=== PATIENT | male | born 1990 ===

== ENCOUNTER 2018-03-31 14:39 | Inpatient (IN) | payer MEDICAID, OTHER ==
[2018-03-31 15:05] VITALS: O2SAT 100
--- NOTE | 2018-03-31 16:32 | C.PDOC ---
History Of Present Illness 27 year old male presents to ED for evaluation of depression and anxiety for significant amount of time but worse over this past week. Pt states he has thoughts of not wanting to live anymore. Notes he has history of bipolar disorder but is not taking his medications on a regular basis because he is unable to fill it. He reports smoking cigarettes, drinking alcohol and using marijuana occasionally. Otherwise, denies suicidal attempts in the past, suicidal plan, homicidal ideation, hallucination, or any active physical complaints at this time. Time Seen by Provider: 03/31/18 15:23 Chief Complaint (Nursing): Psychiatric Evaluation History Per: Patient History/Exam Limitations: no limitations Onset/Duration Of Symptoms: Days Current Symptoms Are (Timing): Still Present Suicide/Self Injury Attempted (Context): None Severity: None Pain Scale Rating Of: 0 Associated Symptoms: Anxiety, Depression, Suicidal Thoughts. denies: Suicidal Plan Involuntary Hold By: None Recent travel outside of the [place]: No Additional History Per: Patient Past Medical History Reviewed: Historical Data, Nursing Documentation, Vital Signs Vital Signs: Last Vital Signs Temp 98.7 F 03/31/18 15:00 Pulse 80 03/31/18 15:00 Resp 18 03/31/18 15:00 BP 118/79 03/31/18 15:00 Pulse Ox 100 03/31/18 16:33 - Medical History PMH: Anxiety, Asthma, Bipolar Disorder, Depression Denies: Diabetes, Hepatitis, HIV, HTN, Chronic Kidney Disease, Seizures, Sexually Transmitted Disease - [facility] Procedures GROUP PSYCHOTHERAPY (01/28/18) INDIV PSYCHOTHERAPY FOR SUBSTANCE ABUSE TREATMENT, SUPPORT (01/28/18) INDIV PSYCHOTHERAPY FOR SUBSTANCE ABUSE, COGNITIV BEHAVIORAL (01/28/18) INDIV PSYCHOTHERAPY FOR SUBSTANCE ABUSE, MOTIVATION ENHANCE (01/28/18) TETANUS TOXOID ADMINIST (09/29/13) Family History: States: Unknown Family Hx - Social History Hx Tobacco Use: Yes Hx Alcohol Use: No Hx Substance Use: Yes (1-2 MJ/day) - Immunization History Hx Tetanus Toxoid Vaccination: No Hx Influenza Vaccination: No Hx Pneumococcal Vaccination: No Review Of Systems Except As Marked, All Systems Reviewed And Found Negative. Constitutional: Negative for: Fever, Chills Cardiovascular: Negative for: Chest Pain Respiratory: Negative for: Shortness of Breath Gastrointestinal: Negative for: Nausea, Vomiting, Abdominal Pain Psych: Positive for: Anxiety, Depression, Suicidal ideation Physical Exam - Physical Exam Appears: Non-toxic, No Acute Distress Skin: Normal Color, Warm, Dry Head: Atraumatic, Normacephalic Eye(s): bilateral: Normal Inspection Oral Mucosa: Moist Neck: Supple Cardiovascular: Rhythm Regular Respiratory: Normal Breath Sounds, No Rales, No Rhonchi, No Wheezing Gastrointestinal/Abdominal: Soft, No Tenderness Extremity: Normal ROM Neurological/Psych: Oriented x3, Normal Speech ED Course And Treatment - Laboratory Results Result Diagrams: 03/31/18 16:34 03/31/18 16:34 O2 Sat by Pulse Oximetry: 100 (RA) Pulse Ox Interpretation: Normal Medical Decision Making Medical Decision Making: Plan: Blood work Urinalysis patient medically cleared, evaluated by crisis, and admitted to psych under Dr. De La Cruz. Disposition - Disposition Disposition Time: 17:47 Condition: STABLE Forms: [facility] (Libyan) - Clinical Impression Clinical Impression: Major depressive disorder - Scribe Statement The provider has reviewed the documentation as recorded by the Scribsonia Tarango All medical record entries made by the Scribe were at my direction and personally dictated by me. I have reviewed the chart and agree that the record accurately reflects my personal performance of the history, physical exam, medical decision making, and the department course for this patient. I have also personally directed, reviewed, and agree with the discharge instructions and disposition.
[2018-03-31 16:37] LABS: BASO % 0.6 % (0.0-2.0); EOS % 0.4 % (0.0-4.0); HEMOGLOBIN 15.8 g/dL (12.0-18.0); LYMPH # 1.7 K/uL (1.0-4.3); LYMPH % 25.1 % (20.0-40.0); MEAN CELL VOLUME 86.8 fL (80.0-94.0); MEAN CORPUSCULAR HEMOGLOBIN 30.1 pg (27.0-31.0); MEAN CORPUSCULAR HGB CONC 34.7 g/dL (33.0-37.0); MEAN PLATELET VOLUME 10.5 fL (7.2-11.7); MONO # 0.5 K/uL (0.0-0.8); MONO % 7.9 % (0.0-10.0); NEUT # 4.3 K/uL (1.8-7.0); NRBC % 0.1 % (0.0-2.0); RBC 5.24 Mil/uL (4.40-5.90); RED CELL DISTRIBUTION WIDTH 14.3 % (11.5-14.5); WHITE BLOOD COUNT 6.6 K/uL (4.8-10.8)
[2018-03-31 16:50] LABS: ALB/GLOB RATIO 1.4 (1.0-2.1); ALBUMIN 4.4 g/dL (3.5-5.0); ALT/SGPT 27 U/L (21-72); AST/SGOT 17 U/L (17-59); BLOOD UREA NITROGEN 10 mg/dL (9-20); CALCIUM 9.6 mg/dl (8.6-10.4); GFR AFRICAN-AMERICAN > 60; GFR NON-AFRICAN AMERICAN > 60
[2018-03-31 16:53] LABS: URINE BILIRUBIN NEGATIVE (NEGATIVE); URINE BLOOD NEGATIVE (NEGATIVE); URINE CLARITY Clear (Clear); URINE COLOR Straw (YELLOW); URINE GLUCOSE (UA) NORMAL (Normal); URINE LEUKOCYTE ESTERASE NEG Leu/uL (Negative); URINE PROTEIN NEGATIVE (NEGATIVE); URINE UROBILINOGEN NORMAL mg/dL (0.2-1.0)
[2018-03-31 17:10] LABS: BARBITURATES, UR NEGATIVE (NEGATIVE); BENZODIAZEPINES, UR NEGATIVE (NEGATIVE); OPIATES, UR NEGATIVE (NEGATIVE); PHENCYCLIDINE, UR NEGATIVE (NEGATIVE)
--- NOTE | 2018-03-31 19:35 | PCM.BM ---
Treatment Plan Problems - Problems identified on initial assessmt depression Date Initiated: 03/31/18 Time Initiated: 19:34 Assessment reference: NA Status: Active Treatment assets and liabiliti Patient Assests: adapts well, cooperative, insightful, motivated, resourceful, ADL independent, physically healthy (significant hx of head injury), negotiates basic needs, cognitively intact, good interpersonal skills (patient currentl reporting paranoia and difficulties in group settings) Patient Liabilities: poor support system, substance abuse - Milieu Protocol Maintain good personal hygiene: daily Encourage regular showers, daily Remind patient to perform daily oral care, daily Assist patient to perform ADL's Maintain personal safety: every shift Educate patient to report safety concerns to staff, every shift Monitor environment for contraband/sharps Medication safety: Monitor for expected outcome, potential side effects: every shift, Assess barriers to learning: every shift, Assess readiness for medication education: every shift
--- NOTE | 2018-04-01 10:08 | PCM.PSYCH ---
Initial Psychiatric Evaluation - Initial Psychiatric Evaluation Type of Admission: Voluntary Legal Status: Capacity Chief Complaint (in patient's own words): I was feeling increasingly anxious.' History of Present Illness and Precipitating Events: Patient is a 27 year old single male, who came to the [facility] ED because of depressed mood and anxiety. Patient reports a long history of bipolar disorder. He was just discharged from [facility] almost 2 months ago. As per the patient, he did not see any psychiatrist, after discharge and he took his medications off and on. As per the patient he started becoming increasingly irritable, agitated and depressed. Yesterday he became increasingly anxious, and he did not feel safe at home, so he came to the hospital to get help. Patient further explained that he'll take his night time medications sometimes but not his day time medications and that he lives in a 1 bedroom apartment with four people including himself. Patient then explained that sometimes he smokes "weed" to help or when he's not home he' ll go to the roof top to look at [facility]. He reports irritability, agitation, poor sleep, racing thoughts and flight of ideas. He also reports depressed mood, at times feelings of hopelessness and helplessness. Patient currently denies any auditory/visual hallucinations and any paranoia. He denies any homicidal ideation. He denies drinking or any other substance abuse. PMH: None reported Current Medications: Active Medications Generic Name Dose Route Start Last Admin Trade Name Freq PRN Reason Stop Dose Admin Divalproex Sodium 250 mg 04/01/18 10:[address] PO BID DONNA Hydroxyzine HCl 25 mg 03/31/18 22:22 Atarax PO Q6 PRN Anxiety Pneumococcal Polyvalent Vaccine 0.5 ml 04/03/18 10:00 Pneumovax 23 Vaccine IM 04/03/18 10:01 .ONCE ONE Quetiapine Fumarate 100 mg 03/31/18 22:30 03/31/18 22:36 Seroquel PO 100 mg HS DONNA Administration Trazodone HCl 50 mg 03/31/18 22:24 03/31/18 22:36 Desyrel PO 50 mg HS PRN Administration Sleep Past Psychiatric History - Past Psychiatric History Previous Treatment History: Inpatient Pertinent Medical Hx (Current Medical&Sleep Prob, Allergies): Allergies Allergy/AdvReac Type Severity Reaction Status Date / Time No Known Allergies Allergy Verified 03/31/18 15:05 Albuterol HFA [Ventolin HFA 90 mcg/actuation (8 g)] 2 puff INH RQ6 PRN inhaler 02/01/18 Divalproex [Depakote DR(*BID*)] 500 mg PO DAILY 30 Days #30 tcp 02/01/18 Divalproex [Depakote DR(*BID*)] 750 mg PO HS 30 Days #90 tcp 02/01/18 QUEtiapine [Seroquel] 100 mg PO HS 30 Days #30 tab 02/01/18 Review of Systems - Review of Systems All systems: reviewed and no additional remarkable complaints except - Psychiatric Psychiatric: Anxiety, Irritability, Suicidal Ideation Mental Status Examination - Personal Presentation Personal Presentation: Looks stated age - Affect Affect: Constricted, Depressed - Motor Activity Motor Activity: Calm - Reliability in Providing Information Reliability in Providing Information: Good - Speech Speech: Organized - Mood Mood: Depressed, Anxious - Formal Thought Process Formal Thought Process: No Impairment - Obsessions/Compulsions Obsessions: No Compulsions: No - Cognitive Functions Orientation: Person, Place, Situation, Time Sensorium: Alert Attention/Concentration: Attentive Abstract Thinking: [place] Estimate of Intelligence: Below average Judgement: Imparied, as evidence by: Poor judgement, Imparied, as evidence by: Lack of insight into illness - Risk Risk: Suicidal, Withdrawal, Diminished functioning - Limitations Limitations: Living alone DSM 5 DX - DSM 5 DSM 5 Diagnosis: Bipolar disorder mixed severe without psychotic features Cannabis use disorder moderate - Recommended/Plan of Treatment Treatment Recommendations and Plan of Treatment: Bipolar disorder mixed severe without psychotic features -CBT -Psychoeducation -Supportive therapy, group therapy, individual therapy -Depakote 250 mg by mouth twice a day -Seroquel 100 mg by mouth daily at bedtime -Trazodone 50 mg by mouth daily at bedtime Cannabis use disorder moderate -Monitor signs and symptoms -Use OK for abstinence - Smoking Cessation Smoking Cessation Initiated: No
[2018-04-01] MEDS: Divalproex 250 mg DR Tab PO SCH ×2 (10:45→17:34)
[2018-04-02] MEDS: Divalproex 500 mg DR Tab PO SCH ×2 (09:57→17:13)
--- NOTE | 2018-04-02 14:06 | PCM.PYCHPN ---
Psychiatric Progress Note - Psychiatric Progress Note Patient seen today, length of contact: 15 min Patient Chief Complaint: I m feeling little better.' Problems Identified/Issues Discussed: Patient seen and evaluated, chart reviewed and discussed with the nurse. Patient reports some improvement in the irritability and agitation. He reports some improvement in the racing of thoughts and anxiety symptoms. He is requesting to increase her meds. However denies any auditory or visual hallucinations. He is taking medication and denies any side effects. Supportive therapy and psychoeducation were given Medication Change: Yes (increase Depakote) Medical Record Reviewed: Yes Mental Status Examination - Cognitive Function Orientation: Person, Place, Situation, Time Memory: Intact Attention: WNL Concentration: Poor Association: WNL Fund of Knowledge: Poor - Mood Mood: Depressed, Anxious - Affect Affect: Constricted, Depressed - Speech Speech: Soft - Formal Thought Process Formal Thought Process: Flight of ideas - Suicidal Ideation Suicidal Ideation: No - Homicidal Ideation Homicidal Ideation: No Goal/Treatment Plan - Goal/Treatment Plan Need for Continued Stay: Severe depression anxiety, Severe functional impairment Progress Toward Problem(s) and Goals/Treatment Plan: Bipolar disorder mixed severe without psychotic features -CBT -Psychoeducation -Supportive therapy, group therapy, individual therapy -Depakote 500 mg by mouth twice a day -Depakote 250 mg by mouth HS -Seroquel 200 mg by mouth daily at bedtime -Trazodone 50 mg by mouth daily at bedtime Cannabis use disorder moderate -Monitor signs and symptoms -Use RI for abstinence
[2018-04-02] MEDS ORDERED: Divalproex 250 mg DR Tab PO SCH (18:00)
[2018-04-03 06:29] VITALS: BP 90/56; PULSE 51; RESP 18; TEMP 98
[2018-04-03] MEDS ORDERED: Pneumococcal 23-Valent Vaccine IM ONE (10:00)
--- NOTE | 2018-04-03 13:12 | PCM.PYCHDC ---
Mental Status Examination - Mental Status Examination Orientation: Person Discharge Summary - Discharge Note Consultations:: List each consultation separately and include: 1. Reason for request. 2. Findings. 3. Follow-up Summary of Hospital Course include:: 1. Description of specific treatment plan utilized for patients during their course of treatmen. 2. Summarize the time- course for resolution of acute symptoms and/or regressed behaviors. 3. Describe issues identified and worked on during hospitalization. 4. Describe medication utilized. 5. Describe medical problems identified and treated. 6. Reassessment of suicide risk Summary of Hospital Course: He moved to [place]. - Final Diagnosis (DSM 5) Condition upon Discharge: STABLE Disposition: HOME/ ROUTINE Prescriptions/Medication Reconciliation: Divalproex [Depakote DR] 250 mg PO QPM #30 tcp Divalproex [Depakote DR] 500 mg PO BID #60 tcp QUEtiapine [Seroquel] 200 mg PO HS #30 tab
== END 2018-04-03 09:00 | disposition home or self-care (01) | DRG 430 ==
LOC: C.ER 14:39 → C.5E 17:47
PROVIDERS: ADMIT Psychiatry & Neurology Psychiatry; ATTEND Psychiatry & Neurology Psychiatry
PROC: GZ3ZZZZ Medication Management (ICD-10-PCS; principal; 2018-03-31)
PROC: GZHZZZZ Group Psychotherapy (ICD-10-PCS; 2018-03-31)
PROC: GZ56ZZZ Individual Psychotherapy, Supportive (ICD-10-PCS; 2018-03-31)
PROC: HZ89ZZZ Medication Management for Substance Abuse Treatment, Other Replacement Medication (ICD-10-PCS; 2018-03-31)
DX: F31.63 Bipolar disorder, current episode mixed, severe, without psychotic features (principal); F12.20 Cannabis dependence, uncomplicated; F17.210 Nicotine dependence, cigarettes, uncomplicated; F41.9 Anxiety disorder, unspecified; J45.909 Unspecified asthma, uncomplicated

== ENCOUNTER 2018-08-18 19:40 | Inpatient (IN) | payer MEDICAID ==
[2018-08-18 20:17] LABS: BASO % 0.6 % (0.0-2.0); EOS % 0.3 % (0.0-4.0); HEMOGLOBIN 16.3 g/dL (12.0-18.0); LYMPH # 1.5 K/uL (1.0-4.3); LYMPH % 20.5 % (20.0-40.0); MEAN CELL VOLUME 89.4 fL (80.0-94.0); MEAN CORPUSCULAR HEMOGLOBIN 30.5 pg (27.0-31.0); MEAN CORPUSCULAR HGB CONC 34.1 g/dL (33.0-37.0); MEAN PLATELET VOLUME 10.5 fL (7.2-11.7); MONO # 0.5 K/uL (0.0-0.8); MONO % 6.9 % (0.0-10.0); NEUT # 5.3 K/uL (1.8-7.0); NEUT % 71.7 % (50.0-75.0); NRBC % 0.1 % (0.0-2.0); RBC 5.35 Mil/uL (4.40-5.90); RED CELL DISTRIBUTION WIDTH 13.5 % (11.5-14.5); WHITE BLOOD COUNT 7.4 K/uL (4.8-10.8)
[2018-08-18 20:30] LABS: ALB/GLOB RATIO 1.6 (1.0-2.1); ALBUMIN 4.9 g/dL (3.5-5.0); ALT/SGPT 28 U/L (21-72); AST/SGOT 22 U/L (17-59); BLOOD UREA NITROGEN 13 mg/dL (9-20); CALCIUM 9.9 mg/dl (8.6-10.4); GFR NON-AFRICAN AMERICAN > 60
[2018-08-18 20:38] LABS: URINE BILIRUBIN NEGATIVE (NEGATIVE); URINE BLOOD NEGATIVE (NEGATIVE); URINE CLARITY Clear (Clear); URINE COLOR Straw (YELLOW); URINE GLUCOSE (UA) NORMAL (Normal); URINE LEUKOCYTE ESTERASE NEG Leu/uL (Negative); URINE PROTEIN NEGATIVE (NEGATIVE); URINE UROBILINOGEN NORMAL mg/dL (0.2-1.0)
[2018-08-18 20:55] LABS: BARBITURATES, UR NEGATIVE (NEGATIVE); BENZODIAZEPINES, UR NEGATIVE (NEGATIVE); OPIATES, UR NEGATIVE (NEGATIVE); PHENCYCLIDINE, UR NEGATIVE (NEGATIVE)
--- NOTE | 2018-08-18 21:05 | C.PDOC ---
History Of Present Illness 27 year old male with a history of bipolar disorder, schizophrenia, presents to the emergency department with reports of feeling anxious and depressed for the past few days. Patient states that he doesn't want to live anymore, but states he has no plans to hurt himself, rather he "just wants to ". Patient denies homicidal ideation, drug/alcohol abuse. Patient also reports that he smokes cigarettes. Patient states that he is supposed to be on Depakote, Seroquel, and Xanax, but he has not taken them due to being unable to fill the prescription since 08/13/18. <Kelsey Arreola - Last Filed: 08/18/18 20:55> History Per: Patient Onset/Duration Of Symptoms: Days Current Symptoms Are (Timing): Still Present Suicide/Self Injury Attempted (Context): None Modifying Factor(s): None Associated Symptoms: Anxiety, Depression, Suicidal Thoughts. denies: Suicidal Plan <Kelsey Arreola - Last Filed: 08/18/18 20:55> <Vijay Green - Last Filed: 08/19/18 00:21> Time Seen by Provider: 08/18/18 19:53 Chief Complaint (Nursing): Psychiatric Evaluation Past Medical History Reviewed: Historical Data, Nursing Documentation, Vital Signs Vital Signs: Last Vital Signs Temp Pulse 90 08/18/18 19:46 Resp 14 08/18/18 19:46 BP 120/80 08/18/18 19:46 Pulse Ox 99 08/18/18 19:46 - Medical History PMH: Anxiety, Asthma, Bipolar Disorder, Depression Denies: Diabetes, Hepatitis, HIV, HTN, Chronic Kidney Disease, Seizures, Sexually Transmitted Disease Surgical History: No Surg Hx - [facility] Procedures GROUP PSYCHOTHERAPY (05/19/18) INDIV PSYCHOTHERAPY FOR SUBSTANCE ABUSE TREATMENT, SUPPORT (01/28/18) INDIV PSYCHOTHERAPY FOR SUBSTANCE ABUSE, COGNITIV BEHAVIORAL (01/28/18) INDIV PSYCHOTHERAPY FOR SUBSTANCE ABUSE, MOTIVATION ENHANCE (01/28/18) INDIVIDUAL PSYCHOTHERAPY, COGNITIVE-BEHAVIORAL (05/19/18) INDIVIDUAL PSYCHOTHERAPY, SUPPORTIVE (05/19/18) MEDICATION MANAGEMENT (03/31/18) MEDS MGMT FOR SUBSTANCE ABUSE TREATMENT, OTH REPL MED (03/31/18) TETANUS TOXOID ADMINIST (09/29/13) Family History: States: No Known Family Hx - Social History Hx Tobacco Use: Yes Hx Alcohol Use: No Hx Substance Use: Yes (Marijuana) - Immunization History Hx Tetanus Toxoid Vaccination: No Hx Influenza Vaccination: No Hx Pneumococcal Vaccination: No <Kelsey Arreola - Last Filed: 08/18/18 20:55> Vital Signs: Last Vital Signs Temp 97.7 F 08/18/18 22:38 Pulse 60 08/18/18 22:38 Resp 14 08/18/18 22:38 BP 91/57 L 08/18/18 22:38 Pulse Ox 97 08/18/18 22:38 - [facility] Procedures GROUP PSYCHOTHERAPY (05/19/18) INDIV PSYCHOTHERAPY FOR SUBSTANCE ABUSE TREATMENT, SUPPORT (01/28/18) INDIV PSYCHOTHERAPY FOR SUBSTANCE ABUSE, COGNITIV BEHAVIORAL (01/28/18) INDIV PSYCHOTHERAPY FOR SUBSTANCE ABUSE, MOTIVATION ENHANCE (01/28/18) INDIVIDUAL PSYCHOTHERAPY, COGNITIVE-BEHAVIORAL (05/19/18) INDIVIDUAL PSYCHOTHERAPY, SUPPORTIVE (05/19/18) MEDICATION MANAGEMENT (03/31/18) MEDS MGMT FOR SUBSTANCE ABUSE TREATMENT, OTH REPL MED (03/31/18) TETANUS TOXOID ADMINIST (09/29/13) <Vijay Green - Last Filed: 08/19/18 00:21> Review Of Systems Constitutional: Negative for: Fever, Chills Cardiovascular: Negative for: Chest Pain Gastrointestinal: Negative for: Nausea, Vomiting, Abdominal Pain, Diarrhea Psych: Positive for: Anxiety, Depression, Suicidal ideation <Kelsey Arreola M - Last Filed: 08/18/18 20:55> Physical Exam - Physical Exam Appears: Non-toxic, No Acute Distress, Other (flat affect) Skin: Warm, Dry Head: Atraumatic, Normacephalic Eye(s): bilateral: Normal Inspection, PERRL, EOMI Oral Mucosa: Moist Neck: Normal, Supple Chest: Symmetrical, No Tenderness Cardiovascular: Rhythm Regular, No Murmur Respiratory: Normal Breath Sounds, No Rales, No Rhonchi, No Wheezing Gastrointestinal/Abdominal: Soft, No Tenderness, No Guarding, No Rebound Extremity: Normal ROM Neurological/Psych: Oriented x3, Normal Speech, Normal Cognition <Kelsey Arreola M - Last Filed: 08/18/18 20:55> ED Course And Treatment - Laboratory Results Result Diagrams: 08/18/18 20:14 08/18/18 20:14 O2 Sat by Pulse Oximetry: 99 (RA) Pulse Ox Interpretation: Normal <Kelsey Arreola - Last Filed: 08/18/18 20:55> - Laboratory Results Result Diagrams: 08/18/18 20:14 08/18/18 20:14 <Vijay Green - Last Filed: 08/19/18 00:21> Medical Decision Making Medical Decision Making: Plan: Chemistry CBC Urinalysis <Kelsey Arreola - Last Filed: 08/18/18 20:55> Disposition <Kelsey Arreola - Last Filed: 08/18/18 20:55> Discussed With Dr.: Jared De Leon Doctor Will See Patient In The: Hospital Counseled Patient/Family Regarding: Diagnosis - Disposition Disposition Time: 00:21 - POA Present On Arrival: None <Vijay Green - Last Filed: 08/19/18 00:21> - Disposition Disposition: HOSPITALIZED Condition: STABLE Forms: [facility] (Italian) - Clinical Impression Clinical Impression: Bipolar disorder - Scribe Statement The provider has reviewed the documentation as recorded by the Scribe (Franc Mccracken) Provider Attestation: All medical record entries made by the Scribe were at my direction and person ally dictated by me. I have reviewed the chart and agree that the record accurately reflects my personal performance of the history, physical exam, medical decision making, and the department course for this patient. I have also personally directed, reviewed, and agree with the discharge instructions and disposition. <Kelsey Arreola - Last Filed: 08/18/18 20:55>
--- NOTE | 2018-08-19 02:17 | PCM.BM ---
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), insightful, motivated, resourceful, ADL independent, physically healthy (significant hx of head injury), negotiates basic needs, cognitively intact, good interpersonal skills (patient currentl reporting paranoia and difficulties in group settings) Patient Liabilities: financial problems (lack of resourcess), poor support system (family issues), substance abuse (Marijuana), medical problems (none) - Milieu Protocol Maintain good personal hygiene: daily Encourage regular showers, daily Remind patient to perform daily oral care, daily Assist patient to perform ADL's Maintain personal safety: every shift Educate patient to report safety concerns to staff, every shift Monitor environment for contraband/sharps Medication safety: Monitor for expected outcome, potential side effects: every shift, Assess barriers to learning: every shift, Assess readiness for medication education: every shift <Lisa Chanel - Last Filed: 08/19/18 13:43> Family Contact Family involvement: Family/SO is involved Family contact: Patient agrees to contact Family contact name: Cody Ramos-father Family contacted how many times per week?: 1 - Goals for Treatment Patient goals for treatment: "I need a partial care program." Discharge/Continuing Care - Education Needs Education Needs: Patient Medication, Patient Coping Skills - Discharge Discharge Criteria: Tolerates medication w/o severe side effects, Reduction of target symptoms Discharge to:: Home, With Family - Treatment Team Participation Discussed with Family/SO: No Was Patient/Family/SO present at Treatment Team Meeting: Yes <Chery Avina - Last Filed: 08/19/18 14:02> - Diagnosis (1) Social anxiety disorder Status: Acute Interventions: 08/19/18 14:01 * Assess/adjust medications daily and /or as needed * See patient on an individual basis 7x/week to assess symptoms of anxiety * Educate patient regarding benefits, side effects and risks of prescribed medications * (2) Bipolar disorder Status: Chronic Interventions: 08/19/18 14:01 * Assess/adjust medications daily and /or as needed * See patient on an individual basis 7x/week to assess symptoms of depression * Monitor for side effects & effectiveness of medications *
--- NOTE | 2018-08-19 09:57 | PCM.PSYCH ---
Initial Psychiatric Evaluation - Initial Psychiatric Evaluation Type of Admission: Voluntary Legal Status: Capacity History of Present Illness and Precipitating Events: Pt is a 27yr old, , male with a reported hx of bipolar and anxiety d/o. Pt denied any substance abuse hx, but he was positive for cannabis. Pt was alert and oriented during this evaluation. Pt said that he has been self medicating with cannabis, because he ran out of medication and his insurance on 08/13/18. Pt said he was in the hospial and unable to follow up on the paperwork. Pt said he is feeling paranoid, out of control, nervous and having negative thoughts. Pt said that he wants to , so his famly don't have to put up with him anymore. However he denies having a plan for harming himself. Pt said he needs to get some medication. Pt., said that he lives with his mother, father and younger brother in a one bed room apt. Pt said he sleeps on the couch and his younger brother sleeps in the room with his parents. Pt said that he is having a very hard time living there because of the close living quarters and his father drinks a lot. Pt said that he has been suffering from mental illness since age 10. Pt denied any traumatic events or being the victim of any type of abuse. Pt denied having SSI or SSD. 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 Pt said that he is unable to acknowledge any of his skills or strengths because he don't feel like himself. Pt said his weakness is, he cannot stick to one thing and see it all the way through to completion. Pt said his goal is to get better so he can help others. Pt presented with signs and symptoms of hopelessness, helplessness and worthlessness as he requested a mental bed so he can get some help for his bipolar and anxiety. Pt. will be admitted to ([address] [place] [address] for his wellness, safety and health care. [ End ] Current Medications: Active Medications Generic Name Dose Route Start Last Admin Trade Name Freq PRN Reason Stop Dose Admin Acetaminophen 650 mg 08/19/18 01:05 08/19/18 01:15 Tylenol 325mg Tab PO 650 mg Q6 PRN Administration Headache Hydroxyzine HCl 25 mg 08/19/18 00:55 08/19/18 01:14 Atarax PO 25 mg Q6H PRN Administration Agitation Past Psychiatric History - Past Psychiatric History Pertinent Medical Hx (Current Medical&Sleep Prob, Allergies): Allergies Allergy/AdvReac Type Severity Reaction Status Date / Time No Known Allergies Allergy Verified 08/18/18 19:49 Albuterol HFA [Ventolin HFA 90 mcg/actuation (8 g)] 2 puff INH RQ6 PRN inhaler 02/01/18 Alprazolam [Xanax] 2 mg PO BID 08/18/18 QUEtiapine [SEROquel] 300 mg PO HS 08/18/18
--- NOTE | 2018-08-19 11:10 | PCM.PSYCH ---
Initial Psychiatric Evaluation - Initial Psychiatric Evaluation Type of Admission: Voluntary Legal Status: Capacity Chief Complaint (in patient's own words): I feel depressed and I have suicidal thoughts. History of Present Illness and Precipitating Events: 27 year male, single, unemployed, male, currently living at home with parents w/ history multiple psychiatric admissions for bipolar disorder/depression/suicidal idealizations, currently admitted for depression and suicidal thoughts. Patient states he has been feeling primarily depressed for the last several years along with suicidal thoughts. He has previous history of cutting his wrists, but actively does not have any plan. Patient additionally admits to periods of elevated mood with inability to focus that causes him to stay awake many hours throughout the night. These occurrences require him to be pacing throughout the night. Additionally patient admits to feeling anxious many times throughout the day, sometimes more in public, large crowds. Patient states he has been unable to finish higher education due to these thoughts. Patient was recently hospitalized at [facility] about 1 month prior for similar issues, bipolar disorder, depression/suicidal idealization and was scheduled to receive follow up care w/ medications upon discharge; however, patient states he did not have a chance to have follow up care due to insurance issues. Patient additionally states his depakote that he has been taking for the past several years, has no longer been helping. There was discussion at the last hospitalization of changing his depakote to lithium; however, patient was too nervous to change the medication due to potential side- effects. Patient admits to daily cannabis use; however, denies ETOH and other drug use. Patient states he has family history (father) of ETOH abuse & (uncle) of anxiety. Patient has a history of asthma that does not currently require any medical therapy. Patient denies any allergies & surgical history. Patient states he takes depakote, seroquel, and alazopram at home. Current Medications: Active Medications Generic Name Dose Route Start Last Admin Trade Name Freq PRN Reason Stop Dose Admin Acetaminophen 650 mg 08/19/18 01:05 08/19/18 01:15 Tylenol 325mg Tab PO 650 mg Q6 PRN Administration Headache Gabapentin 100 mg 08/19/18 10:15 Neurontin PO TID DONNA Hydroxyzine HCl 25 mg 08/19/18 00:55 08/19/18 01:14 Atarax PO 25 mg Q6H PRN Administration Agitation Trazodone HCl 50 mg 08/19/18 22:00 Desyrel PO HS DONNA Venlafaxine HCl 75 mg 08/19/18 10:00 Effexor PO DAILY DONNA Past Psychiatric History - Past Psychiatric History Previous Treatment History: Inpatient Prior Professional Help: Previous admission for suicidal & depressive thoughts. At [facility]: [facility] Date: 07/13/18 Nature of Treatment: depression and suicidial thoughts History of ETOH/Drug Use: Cannabis use Pertinent Medical Hx (Current Medical&Sleep Prob, Allergies): Allergies Allergy/AdvReac Type Severity Reaction Status Date / Time No Known Allergies Allergy Verified 08/18/18 19:49 Albuterol HFA [Ventolin HFA 90 mcg/actuation (8 g)] 2 puff INH RQ6 PRN inhaler 02/01/18 Alprazolam [Xanax] 2 mg PO BID 08/18/18 QUEtiapine [SEROquel] 300 mg PO HS 08/18/18 Review of Systems - Psychiatric Psychiatric: Anxiety, Depression, Suicidal Ideation. absent: Auditory Hallucinations, Behavioral Changes, Change in Appetite, Confusion, Homicidal Ideation, Memory Loss, Mood Swings, Visual Hallucinations Mental Status Examination - Personal Presentation Personal Presentation: Looks stated age - Affect Affect: Depressed - Motor Activity Motor Activity: Calm - Reliability in Providing Information Reliability in Providing Information: Good - Speech Speech: Organized, Relevant, Coherent - Mood Mood: Depressed - Formal Thought Process Formal Thought Process: No Impairment - Obsessions/Compulsions Obsessions: No Compulsions: No - Cognitive Functions Orientation: Person, Place, Time Sensorium: Alert - Risk Risk: Suicidal, Homicidal DSM 5 DX - DSM 5 DSM 5 Diagnosis: Bipolar disorder with depressed mood Cannabis use disorder, severe - Recommended/Plan of Treatment Treatment Recommendations and Plan of Treatment: Patient education. Supportive therapy and group therapy Psychoeducation Seroquel 300 mg PO HS Gabapentin 300 mg PO BID Trazodone 50 mg PO HS Atarax 25 mg PO Q6H PRN Albuterol INH RQ4 PRN Tylenol 650 PO Q6 PRN Other PRN medications. - Smoking Cessation Smoking Cessation Initiated: No Reason for not providing: patient is a nonsmoker
[2018-08-19] MEDS ORDERED: Albuterol HFA 90 mcg/actuation (8 g) INH PRN (12:41)
--- NOTE | 2018-08-19 14:02 | CP.PCM.PCO ---
Physician Communication Note - Physician Communication Note Physician Communication Note: [employer] left a vm to his father with his consent.
[2018-08-20 06:50] VITALS: O2SAT 98
--- NOTE | 2018-08-20 13:16 | PCM.PYCHPN ---
Psychiatric Progress Note - Psychiatric Progress Note Patient seen today, length of contact: 22 min Patient Chief Complaint: "I don't think Seroquel is working, It doesn't work in me" Problems Identified/Issues Discussed: The pt is seen, chart reviewed, case discussed with staff. The pt is compliant with medications and reports no side-effects, except for not believing it will work He asked for [place] - risks discussed and med is ordered Symptoms are improving slowly but needs more time to stabilize. He has likely borderline features. His fa did not call back Pt attends groups and activities. Support given, psycho-education provided. After care discussed. Medication Change: Yes (add lithium) Medical Record Reviewed: Yes Mental Status Examination - Cognitive Function Orientation: Person, Place, Time Memory: Intact Attention: WNL Concentration: Poor Association: WNL Fund of Knowledge: WNL - Mood Mood: Depressed - Affect Affect: Broad, Depressed - Speech Speech: Appropriate - Formal Thought Process Formal Thought Process: No Impairment - Suicidal Ideation Suicidal Ideation: No Plan: vague SI but no plans or intentions - Homicidal Ideation Homicidal Ideation: No Goal/Treatment Plan - Goal/Treatment Plan Need for Continued Stay: Severe depression anxiety, Discharge may exacerbated symptoms, Severe functional impairment Progress Toward Problem(s) and Goals/Treatment Plan: Patient education. Supportive therapy and group therapy Psychoeducation Seroquel 300 mg PO HS Gabapentin 300 mg PO BID Trazodone 50 mg PO HS Atarax 25 mg PO Q6H PRN Albuterol INH RQ4 PRN Tylenol 650 PO Q6 PRN Other PRN medications.
[2018-08-20] MEDS: Lithium Carbonate ER Tab 450 MG PO SCH (21:46)
[2018-08-21] MEDS: Lithium Carbonate ER Tab 450 MG PO SCH ×2 (09:27→21:27)
--- NOTE | 2018-08-21 14:09 | PCM.PYCHPN ---
Psychiatric Progress Note - Psychiatric Progress Note Patient seen today, length of contact: 16 min Patient Chief Complaint: "I was worried about [place]" Problems Identified/Issues Discussed: The pt is seen, chart reviewed, case is discussed with staff. Support and psychoeducation given, CBT used briefly The pt is improving slowly but needs more time due to severity of symptoms and relapse risk. He refused Li fearing it would be "too much" but now he agrees to take it Still at risk for suicide No SEs from medications, risks discussed. After care discussed Medication Change: Yes (start lithium) Medical Record Reviewed: Yes Mental Status Examination - Cognitive Function Orientation: Person, Place, Time Memory: Intact Attention: WNL Concentration: Poor Association: WNL Fund of Knowledge: WNL - Mood Mood: Depressed - Affect Affect: Broad, Depressed - Speech Speech: Appropriate - Formal Thought Process Formal Thought Process: No Impairment - Suicidal Ideation Suicidal Ideation: No - Homicidal Ideation Homicidal Ideation: No Goal/Treatment Plan - Goal/Treatment Plan Need for Continued Stay: Severe depression anxiety, Discharge may exacerbated symptoms, Severe functional impairment Progress Toward Problem(s) and Goals/Treatment Plan: Patient education. Supportive therapy and group therapy Psychoeducation Seroquel 300 mg PO HS Gabapentin 300 mg PO BID Trazodone 50 mg PO HS Atarax 25 mg PO Q6H PRN Albuterol INH RQ4 PRN Tylenol 650 PO Q6 PRN Other PRN medications.
[2018-08-22] MEDS: Lithium Carbonate ER Tab 450 MG PO SCH ×2 (10:08→21:23)
--- NOTE | 2018-08-22 11:23 | PCM.PYCHPN ---
Psychiatric Progress Note - Psychiatric Progress Note Patient seen today, length of contact: 15 min Patient Chief Complaint: "I was worried about [place]" Problems Identified/Issues Discussed: The pt is seen, chart reviewed, case is discussed with staff. Support and psychoeducation given, CBT used briefly The pt is improving slowly but needs more time due to severity of symptoms and relapse risk. He refused Li fearing it would be "too much" but now he agrees to take it Still at risk for suicide No SEs from medications, risks discussed. After care discussed Medication Change: Yes (start lithium) Medical Record Reviewed: Yes Mental Status Examination - Cognitive Function Orientation: Person, Place, Time Memory: Intact Attention: WNL Concentration: Poor Association: WNL Fund of Knowledge: WNL - Mood Mood: Depressed - Affect Affect: Broad, Depressed - Speech Speech: Appropriate - Formal Thought Process Formal Thought Process: No Impairment - Suicidal Ideation Suicidal Ideation: No - Homicidal Ideation Homicidal Ideation: No Goal/Treatment Plan - Goal/Treatment Plan Need for Continued Stay: Severe depression anxiety, Discharge may exacerbated symptoms, Severe functional impairment Progress Toward Problem(s) and Goals/Treatment Plan: Patient education. Supportive therapy and group therapy Psychoeducation Seroquel 300 mg PO HS Gabapentin 300 mg PO BID Trazodone 50 mg PO HS Atarax 25 mg PO Q6H PRN Albuterol INH RQ4 PRN Tylenol 650 PO Q6 PRN Other PRN medications.
[2018-08-23] MEDS: Lithium Carbonate ER Tab 450 MG PO SCH ×2 (10:02→21:33)
[2018-08-24] MEDS: Lithium Carbonate ER Tab 450 MG PO SCH ×2 (09:31→21:30)
[2018-08-25 06:34] VITALS: TEMP 98.3
[2018-08-25 08:48] LABS: ALB/GLOB RATIO 1.8 (1.0-2.1); ALBUMIN 4.7 g/dL (3.5-5.0); ALT/SGPT 31 U/L (21-72); AST/SGOT 16 U/L (17-59); BLOOD UREA NITROGEN 15 mg/dL (9-20); CALCIUM 9.8 mg/dl (8.6-10.4); GFR NON-AFRICAN AMERICAN > 60
[2018-08-25 09:37] LABS: HIV 1&2 ANTIBODY NEGATIVE (NEGATIVE)
[2018-08-25 09:38] LABS: HEPATITIS C ANTIBODY NEGATIVE (NEGATIVE)
[2018-08-25] MEDS: Lithium Carbonate ER Tab 450 MG PO SCH ×2 (09:56→21:15)
[2018-08-26] MEDS: Lithium Carbonate ER Tab 450 MG PO SCH ×2 (09:13→21:07)
--- NOTE | 2018-08-26 10:14 | PCM.BM ---
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), insightful, motivated, resourceful, ADL independent, physically healthy (significant hx of head injury), negotiates basic needs, cognitively intact, good interpersonal skills (patient currentl reporting paranoia and difficulties in group settings) Patient Liabilities: financial problems (lack of resourcess), poor support system (family issues), substance abuse (Marijuana), medical problems (none) - Milieu Protocol Maintain good personal hygiene: daily Encourage regular showers, daily Remind patient to perform daily oral care, daily Assist patient to perform ADL's Maintain personal safety: every shift Educate patient to report safety concerns to staff, every shift Monitor environment for contraband/sharps Medication safety: Monitor for expected outcome, potential side effects: every shift, Assess barriers to learning: every shift, Assess readiness for medication education: every shift Milieu Narrative: Patient education. Supportive therapy and group therapy Psychoeducation Seroquel 300 mg PO HS Gabapentin 300 mg PO BID Trazodone 50 mg PO HS Atarax 25 mg PO Q6H PRN Albuterol INH RQ4 PRN Tylenol 650 PO Q6 PRN Other PRN medications. Family Contact Family involvement: Family/SO is involved Family contact: Patient agrees to contact Family contact name: Cody Ramos-father Family contacted how many times per week?: 1 - Goals for Treatment Patient goals for treatment: "I need a partial care program." Discharge/Continuing Care - Education Needs Education Needs: Patient Medication, Patient Coping Skills - Discharge Discharge Criteria: Tolerates medication w/o severe side effects, Reduction of target symptoms Discharge to:: Home, With Family - Treatment Team Participation Patient/Family/SO Statement: Patient education. Supportive therapy and group therapy Psychoeducation Seroquel 300 mg PO HS Gabapentin 300 mg PO BID Trazodone 50 mg PO HS Atarax 25 mg PO Q6H PRN Albuterol INH RQ4 PRN Tylenol 650 PO Q6 PRN Other PRN medications. Discussed with Family/SO: No Was Patient/Family/SO present at Treatment Team Meeting: Yes Treatment Plan Review - Problem Altered thought process Time Initiated: 02:15 Eneffective coping skill Time Initiated: 02:15 - Discharge / Continuing Care Discharge to:: Home, With Family Behavioral Health Services: Partial hospital Health Needs: Medications/Rx <Chery Avina - Last Filed: 08/26/18 14:02> - Diagnosis (1) Social anxiety disorder Status: Acute Interventions: 08/26/18 14:02 * Assess/adjust medications daily and /or as needed * See patient on an individual basis 7x/week to assess symptoms of anxiety * Educate patient regarding benefits, side effects and risks of prescribed medications * (2) Bipolar disorder Status: Chronic Interventions: 08/26/18 14:02 * Assess/adjust medications daily and /or as needed * See patient on an individual basis 7x/week to assess level of manic behaviors and stability * Discuss risks, benefits, side effects and alternatives of medications * <Angelic Vizcaino - Last Filed: 08/26/18 14:43> Treatment Plan Review - Problem Altered thought process Date Initiated: 08/26/18 Time Initiated: 14:43 Progress toward outcomes: improved Eneffective coping skill Date Initiated: 08/26/18 Time Initiated: 14:43 Progress toward outcomes: improved
--- NOTE | 2018-08-26 14:00 | PCM.PYCHPN ---
Psychiatric Progress Note - Psychiatric Progress Note Patient seen today, length of contact: 15 min Patient Chief Complaint: "I was worried about [place]" Problems Identified/Issues Discussed: The pt is seen, chart reviewed, case is discussed with staff. Support and psychoeducation given, CBT used briefly The pt is improving slowly but needs more time due to severity of symptoms and relapse risk. He refused Li fearing it would be "too much" but now he agrees to take it Still at risk for suicide No SEs from medications, risks discussed. After care discussed Medication Change: Yes (start inderal) Medical Record Reviewed: Yes Mental Status Examination - Cognitive Function Orientation: Person, Place, Time Memory: Intact Attention: WNL Concentration: Poor Association: WNL Fund of Knowledge: WNL - Mood Mood: Depressed - Affect Affect: Broad, Depressed - Speech Speech: Appropriate - Formal Thought Process Formal Thought Process: No Impairment - Suicidal Ideation Suicidal Ideation: No - Homicidal Ideation Homicidal Ideation: No Goal/Treatment Plan - Goal/Treatment Plan Need for Continued Stay: Severe depression anxiety, Discharge may exacerbated symptoms, Severe functional impairment Progress Toward Problem(s) and Goals/Treatment Plan: Patient education. Supportive therapy and group therapy Psychoeducation Seroquel 300 mg PO HS Gabapentin 300 mg PO BID Trazodone 50 mg PO HS Atarax 25 mg PO Q6H PRN Albuterol INH RQ4 PRN Tylenol 650 PO Q6 PRN Other PRN medications.
[2018-08-26] MEDS ORDERED: Benzocaine 10% Oral Anesthetic (12 ml) MM PRN (19:43)
[2018-08-27 06:39] VITALS: RESP 18
[2018-08-27 09:31] VITALS: BP 108/74; PULSE 83
--- NOTE | 2018-08-27 09:54 | PCM.PYCHDC ---
Mental Status Examination - Mental Status Examination Orientation: Person, Place, Situation, Time Memory: Intact Mood: Anxious Affect: Constricted Speech: Appropriate Attention: WNL Concentration: WNL Association: WNL Fund of Knowledge: WNL Formal Thought Process: No Impairment Suicidal Ideation: No Current Homicidal Ideation?: No Discharge Summary - Discharge Note Psychiatric History (includes Medical, Family, Personal Hx): depression and suicidial thoughts Consultations:: List each consultation separately and include: 1. Reason for request. 2. Findings. 3. Follow-up Summary of Hospital Course include:: 1. Description of specific treatment plan utilized for patients during their course of treatmen. 2. Summarize the time- course for resolution of acute symptoms and/or regressed behaviors. 3. Describe issues identified and worked on during hospitalization. 4. Describe medication utilized. 5. Describe medical problems identified and treated. 6. Reassessment of suicide risk Summary of Hospital Course: Hospital course: The pt was admitted and started on treatment with psychotherapy, support, psychoeducation and medications. [place] and CBT used. The pt attended groups and activities, as well as milieu therapy. All the risks and benefits of medications are discussed and the patient u nderstood and agreed. The pt improved with the treatments provided. After care discussed with the patient. CRC - Diagnosis (1) Social anxiety disorder Status: Acute (2) Bipolar disorder Status: Chronic - Final Diagnosis (DSM 5) Condition upon Discharge: STABLE DSM 5: Bipolar disorder with depressed mood Cannabis use disorder, severe Disposition: HOME/ ROUTINE Follow-up Treatment Plan: Continue below medications after discharge. Follow after care plan as discussed. Use relapse prevention skills Return to ER or call 911 if suicidal, homicidal or symptoms relapse. Stay away from stress, alcohol and drugs. See primary doctor regularly and get labs. Prescriptions/Medication Reconciliation: [place] Carbonate ER Tab [[place] Carbonate] 450 mg PO Q12 #60 tab Propranolol [Inderal] 10 mg PO TID #90 tab QUEtiapine [Seroquel] 300 mg PO HS #30 tab traZODone [Desyrel] 50 mg PO HS PRN #30 tab PRN Reason: Insomnia
[2018-08-27] MEDS: Lithium Carbonate ER Tab 450 MG PO SCH (10:03)
== END 2018-08-27 12:30 | disposition home or self-care (01) | DRG 753 ==
LOC: C.ER 19:40 → C.5E 08-19 00:22
PROC: GZHZZZZ Group Psychotherapy (ICD-10-PCS; principal; 2018-08-19)
PROC: GZ56ZZZ Individual Psychotherapy, Supportive (ICD-10-PCS; 2018-08-19)
DX: F31.30 Bipolar disorder, current episode depressed, mild or moderate severity, unspecified (principal); R45.851 Suicidal ideations; F40.10 Social phobia, unspecified; F17.210 Nicotine dependence, cigarettes, uncomplicated; F12.10 Cannabis abuse, uncomplicated; J45.909 Unspecified asthma, uncomplicated

== ENCOUNTER 2018-09-09 11:22 | Outpatient (CLI) | payer MEDICAID | END 2018-09-09 11:23 | disposition home or self-care (01) | LOC: C.LAB 11:22 | DX: F31.4 Bipolar disorder, current episode depressed, severe, without psychotic features (principal) ==

== ENCOUNTER 2018-11-09 14:13 | Inpatient (IN) | payer MEDICAID ==
[2018-11-09 14:20] VITALS: BMI 26.6
--- NOTE | 2018-11-09 14:39 | C.PDOC ---
History Of Present Illness 28 years old male presents to ED for complaints of depression and suicidal ideation with plan. Patient states "I want to jump off a bridge." Denies any physical complaints. Time Seen by Provider: 11/09/18 14:16 Chief Complaint (Nursing): Psychiatric Evaluation History Per: Patient History/Exam Limitations: no limitations Onset/Duration Of Symptoms: Hrs Current Symptoms Are (Timing): Still Present Suicide/Self Injury Attempted (Context): None Associated Symptoms: Depression, Suicidal Thoughts, Suicidal Plan Involuntary Hold By: None Recent travel outside of the [place]: No Past Medical History Reviewed: Historical Data, Nursing Documentation, Vital Signs Vital Signs: Last Vital Signs Temp 98.1 F 11/09/18 14:20 Pulse 94 H 11/09/18 14:20 Resp 18 11/09/18 14:20 BP 114/77 11/09/18 14:20 Pulse Ox 97 11/09/18 14:20 - Medical History PMH: Anxiety, Asthma, Bipolar Disorder, Depression Denies: Diabetes, Hepatitis, HIV, HTN, Chronic Kidney Disease, Seizures, Sexually Transmitted Disease - [facility] Procedures GROUP PSYCHOTHERAPY (08/19/18) INDIV PSYCHOTHERAPY FOR SUBSTANCE ABUSE TREATMENT, SUPPORT (01/28/18) INDIV PSYCHOTHERAPY FOR SUBSTANCE ABUSE, COGNITIV BEHAVIORAL (01/28/18) INDIV PSYCHOTHERAPY FOR SUBSTANCE ABUSE, MOTIVATION ENHANCE (01/28/18) INDIVIDUAL PSYCHOTHERAPY, COGNITIVE-BEHAVIORAL (05/19/18) INDIVIDUAL PSYCHOTHERAPY, SUPPORTIVE (08/19/18) MEDICATION MANAGEMENT (03/31/18) MEDS MGMT FOR SUBSTANCE ABUSE TREATMENT, OTH REPL MED (03/31/18) TETANUS TOXOID ADMINIST (09/29/13) Family History: States: Unknown Family Hx - Social History Hx Tobacco Use: Yes Hx Alcohol Use: No (denies) Hx Substance Use: Yes - Immunization History Hx Tetanus Toxoid Vaccination: No Hx Influenza Vaccination: No Hx Pneumococcal Vaccination: No Review Of Systems Except As Marked, All Systems Reviewed And Found Negative. Constitutional: Negative for: Fever, Chills Gastrointestinal: Negative for: Nausea, Vomiting, Diarrhea Skin: Negative for: Rash Neurological: Negative for: Weakness, Numbness Psych: Positive for: Suicidal ideation Physical Exam - Physical Exam Appears: Non-toxic, No Acute Distress Skin: Normal Color, Warm, Dry, No Rash Head: Atraumatic, Normacephalic Eye(s): bilateral: Normal Inspection, PERRL, EOMI Oral Mucosa: Moist Neck: Normal ROM, Supple Chest: Symmetrical, No Tenderness Cardiovascular: Rhythm Regular, No Murmur Respiratory: Normal Breath Sounds, No Rales, No Rhonchi, No Wheezing Gastrointestinal/Abdominal: Bowel Sounds, Soft, No Tenderness Extremity: Normal ROM Extremity: Bilateral: Atraumatic, Normal Color And Temperature, Normal ROM Pulses: Left Radial: Normal, Right Radial: Normal Neurological/Psych: Oriented x3, Normal Speech, Other (No focal deficits ) Gait: Steady ED Course And Treatment - Laboratory Results Result Diagrams: 11/09/18 14:48 11/09/18 14:48 O2 Sat by Pulse Oximetry: 97 (RA) Pulse Ox Interpretation: Normal Medical Decision Making Medical Decision Making: Plan: 1:1 observation Blood work Urinalysis accepted cirsis medically clear accepted. 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 - Scribe Statement Alesha Pierson All medical record entries made by the Scribe were at my direction and personally dictated by me. I have reviewed the chart and agree that the record accurately reflects my personal performance of the history, physical exam, medical decision making, and the department course for this patient. I have also personally directed, reviewed, and agree with the discharge instructions and disposition. Decision To Admit - Pt Status Changed To: Hospital Disposition Of: Inpatient - Admit Certification Admit to Inpatient:: After my assessment, the patient will require hospitalization for at least two midnights. This is because of the severity of symptoms shown, intensity of services needed, and/or the medical risk in this patient being treated as an outpatient. - InPatient: Physician Admission Certification: I certify that this patient requires 2 or more midnights of care for the following reason:: needs inpt - . Bed Request Type: Psychiatry Admitting Physician: Charline Solitario Patient Diagnosis: Moderate major depression, single episode
[2018-11-09 14:51] LABS: BASO # 0.1 K/uL (0.0-0.2); BASO % 0.8 % (0.0-2.0); EOS # 0.1 K/uL (0.0-0.7); EOS % 0.9 % (0.0-4.0); HEMOGLOBIN 15.5 g/dL (12.0-18.0); LYMPH # 1.2 K/uL (1.0-4.3); LYMPH % 19.1 % (20.0-40.0); MEAN CELL VOLUME 89.3 fL (80.0-94.0); MEAN CORPUSCULAR HEMOGLOBIN 30.8 pg (27.0-31.0); MEAN CORPUSCULAR HGB CONC 34.5 g/dL (33.0-37.0); MEAN PLATELET VOLUME 10.6 fL (7.2-11.7); MONO # 0.7 K/uL (0.0-0.8); MONO % 10.6 % (0.0-10.0); NEUT # 4.3 K/uL (1.8-7.0); NEUT % 68.6 % (50.0-75.0); NRBC % 0.1 % (0.0-2.0); RBC 5.03 Mil/uL (4.40-5.90); RED CELL DISTRIBUTION WIDTH 13.7 % (11.5-14.5); WHITE BLOOD COUNT 6.2 K/uL (4.8-10.8)
[2018-11-09 14:55] LABS: URINE BILIRUBIN NEGATIVE (NEGATIVE); URINE BLOOD NEGATIVE (NEGATIVE); URINE CLARITY Clear (Clear); URINE COLOR Yellow (YELLOW); URINE GLUCOSE (UA) NORMAL (Normal); URINE LEUKOCYTE ESTERASE NEG Leu/uL (Negative); URINE PROTEIN NEGATIVE (NEGATIVE); URINE UROBILINOGEN NORMAL mg/dL (0.2-1.0)
[2018-11-09 15:05] LABS: ACETAMINOPHEN < 10.0 ug/mL (10.0-30.0); SALICYLATE < 1.0 {null, mg/dL 1}
[2018-11-09 15:07] LABS: ALB/GLOB RATIO 1.6 (1.0-2.1); ALBUMIN 4.3 g/dL (3.5-5.0); ALT/SGPT 12 U/L (21-72); AST/SGOT 19 U/L (17-59); BLOOD UREA NITROGEN 10 mg/dL (9-20); CALCIUM 9.5 mg/dl (8.6-10.4); GFR NON-AFRICAN AMERICAN > 60
[2018-11-09 15:10] LABS: VALPROIC ACID 64.5 ug/mL (50.0-100.0)
[2018-11-09 15:15] LABS: BARBITURATES, UR NEGATIVE (NEGATIVE); OPIATES, UR NEGATIVE (NEGATIVE); PHENCYCLIDINE, UR NEGATIVE (NEGATIVE)
[2018-11-09 15:17] LABS: BENZODIAZEPINES, UR POSITIVE (NEGATIVE)
[2018-11-09 19:22] VITALS: O2SAT 97
--- NOTE | 2018-11-09 19:49 | PCM.BM ---
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), insightful, motivated, resourceful, ADL independent, physically healthy (significant hx of head injury), negotiates basic needs, cognitively intact, good interpersonal skills (patient currentl reporting paranoia and difficulties in group settings) Patient Liabilities: financial problems, poor support system, substance abuse - Milieu Protocol Maintain good personal hygiene: daily Encourage regular showers, daily Remind patient to perform daily oral care, daily Assist patient to perform ADL's Conduct patient checks and document Observation sheet: Q15 minutes Maintain personal safety: every shift Educate patient to report safety concerns to staff, every shift Monitor environment for contraband/sharps Medication safety: Monitor for expected outcome, potential side effects: every shift, Assess barriers to learning: every shift, Assess readiness for medication education: every shift <Ana Fuentes - Last Filed: 11/11/18 12:54> <Trish Mehta - Last Filed: 11/13/18 11:25> - Diagnosis (1) Bipolar 1 disorder Status: Acute Interventions: 11/13/18 11:25 * Assess/adjust medications daily and /or as needed * See patient on an individual basis 7x/week to assess level of manic behaviors and stability * Discuss risks, benefits, side effects and alternatives of medications *
[2018-11-10] MEDS: Divalproex 250 mg DR Tab PO SCH (21:38)
[2018-11-11] MEDS: Divalproex 500 mg DR Tab PO SCH (09:32)
[2018-11-11] MEDS ORDERED: Divalproex 500 mg DR Tab PO SCH (10:00)
[2018-11-11] MEDS: Divalproex 250 mg DR Tab PO SCH (21:10)
--- NOTE | 2018-11-11 21:57 | PCM.PYCHPN ---
Psychiatric Progress Note - Psychiatric Progress Note Patient seen today, length of contact: 15 min Patient Chief Complaint: I want to leave. Problems Identified/Issues Discussed: Patient was seen and evaluated, chart reviewed and discussed with the staff. As per staff he remained isolative and withdrawn. However he remained calm and cooperative. Patient reported improvement in his mood and reports improvement in the irritability and agitation. He denies any auditory hallucinations any paranoia. He is taking medication but denies any side effects. Symptoms are improving gradually but he needs to stay longer for further stabilization. Supportive therapy was given. Medication Change: Yes Medical Record Reviewed: Yes Mental Status Examination - Cognitive Function Orientation: Person, Place, Situation, Time Memory: Intact Attention: WNL Concentration: Poor Association: WNL Fund of Knowledge: Poor - Mood Mood: Depressed, Anxious - Affect Affect: Constricted - Speech Speech: Soft - Formal Thought Process Formal Thought Process: No Impairment - Suicidal Ideation Suicidal Ideation: No - Homicidal Ideation Homicidal Ideation: No Goal/Treatment Plan - Goal/Treatment Plan Need for Continued Stay: Remain at risks for inpatient hospitalization Progress Toward Problem(s) and Goals/Treatment Plan: Bipolar disorder mixed severe without psychotic features Cannabis use disorder moderate CBT Psychoeducation Supportive therapy and group therapy Depakote for mood Seroquel for insomnia Trazodone for insomnia Hydroxyzine for anxiety
[2018-11-12] MEDS: Divalproex 500 mg DR Tab PO SCH (09:59)
[2018-11-12] MEDS ORDERED: Influenza Vaccine 60 mcg/0.5 mL SYR (4YR UP) IM ONE (10:00)
[2018-11-12] MEDS ORDERED: Pneumococcal 23-Valent Vaccine SC ONE (10:00)
[2018-11-12] MEDS: Divalproex 250 mg DR Tab PO SCH (22:23)
--- NOTE | 2018-11-12 23:12 | PCM.PYCHPN ---
Psychiatric Progress Note - Psychiatric Progress Note Patient seen today, length of contact: 15 min Patient Chief Complaint: I m feeling much better. Problems Identified/Issues Discussed: Patient was seen and evaluated, chart reviewed and discussed with the staff. As per staff he remained isolative and withdrawn. However he remained calm and cooperative. Patient reported improvement in his mood and reports improvement in the irritability and agitation. He denies any auditory hallucinations any paranoia. He is taking medication but denies any side effects. Symptoms are improving gradually but he needs to stay longer for further stabilization. Supportive therapy was given. Medication Change: Yes Medical Record Reviewed: Yes Mental Status Examination - Cognitive Function Orientation: Person, Place, Situation, Time Memory: Intact Attention: WNL Concentration: Poor Association: WNL Fund of Knowledge: Poor - Mood Mood: Depressed, Anxious - Affect Affect: Constricted - Speech Speech: Soft - Formal Thought Process Formal Thought Process: No Impairment - Suicidal Ideation Suicidal Ideation: No - Homicidal Ideation Homicidal Ideation: No Goal/Treatment Plan - Goal/Treatment Plan Need for Continued Stay: Remain at risks for inpatient hospitalization Progress Toward Problem(s) and Goals/Treatment Plan: Bipolar disorder mixed severe without psychotic features Cannabis use disorder moderate CBT Psychoeducation Supportive therapy and group therapy Depakote for mood Seroquel for insomnia Trazodone for insomnia Hydroxyzine for anxiety
[2018-11-13 06:29] VITALS: BP 114/70; PULSE 81; RESP 18; TEMP 97.9
[2018-11-13] MEDS: Divalproex 500 mg DR Tab PO SCH (09:41)
--- NOTE | 2018-11-13 10:29 | PCM.PYCHDC ---
Mental Status Examination - Mental Status Examination Orientation: Person, Place, Situation, Time Memory: Intact Mood: Neutral Affect: Constricted Speech: Soft Attention: WNL Concentration: WNL Association: WNL Fund of Knowledge: WNL Formal Thought Process: No Impairment Suicidal Ideation: No Current Homicidal Ideation?: No Discharge Summary - Discharge Note Laboratory Data: Abnormal Lab Results 11/12/18 13:58 Valproic Acid 60.0 Consultations:: List each consultation separately and include: 1. Reason for re quest. 2. Findings. 3. Follow-up Summary of Hospital Course include:: 1. Description of specific treatment plan utilized for patients during their course of treatmen. 2. Summarize the time- course for resolution of acute symptoms and/or regressed behaviors. 3. Describe issues identified and worked on during hospitalization. 4. Describe medication utilized. 5. Describe medical problems identified and treated. 6. Reassessment of suicide risk - Final Diagnosis (DSM 5) Condition upon Discharge: STABLE Disposition: HOME/ ROUTINE Follow-up Treatment Plan: Bipolar disorder mixed severe without psychotic features Cannabis use disorder moderate CBT Psychoeducation Supportive therapy and group therapy Depakote for mood Seroquel for insomnia Trazodone for insomnia Hydroxyzine for anxiety Prescriptions/Medication Reconciliation: Divalproex [Depakote DR] 250 mg PO HS #30 tcp Divalproex [Depakote DR] 500 mg PO BID #60 tcp QUEtiapine [SEROquel] 200 mg PO HS #30 tab traZODone [Desyrel] 100 mg PO HS #30 tab
== END 2018-11-13 13:40 | disposition home or self-care (01) | DRG 430 ==
LOC: C.ER 14:13 → C.5E 16:23
PROVIDERS: ADMIT Psychiatry & Neurology Psychiatry; ATTEND Psychiatry & Neurology Psychiatry
PROC: GZHZZZZ Group Psychotherapy (ICD-10-PCS; principal; 2018-11-09)
PROC: HZ52ZZZ Individual Psychotherapy for Substance Abuse Treatment, Cognitive-Behavioral (ICD-10-PCS; 2018-11-09)
PROC: HZ59ZZZ Individual Psychotherapy for Substance Abuse Treatment, Supportive (ICD-10-PCS; 2018-11-09)
PROC: HZ56ZZZ Individual Psychotherapy for Substance Abuse Treatment, Psychoeducation (ICD-10-PCS; 2018-11-09)
PROC: HZ42ZZZ Group Counseling for Substance Abuse Treatment, Cognitive-Behavioral (ICD-10-PCS; 2018-11-09)
PROC: HZ46ZZZ Group Counseling for Substance Abuse Treatment, Psychoeducation (ICD-10-PCS; 2018-11-09)
PROC: GZ58ZZZ Individual Psychotherapy, Cognitive-Behavioral (ICD-10-PCS; 2018-11-09)
PROC: GZ56ZZZ Individual Psychotherapy, Supportive (ICD-10-PCS; 2018-11-09)
DX: F31.63 Bipolar disorder, current episode mixed, severe, without psychotic features (principal); R45.851 Suicidal ideations; F12.20 Cannabis dependence, uncomplicated; F41.9 Anxiety disorder, unspecified; G47.00 Insomnia, unspecified; J45.909 Unspecified asthma, uncomplicated; Z87.891 Personal history of nicotine dependence